=== PATIENT | female | born 1945 | race Caucasian/White ===

== ENCOUNTER 2018-11-22 06:54 | Inpatient (IN) | payer MEDICARE, BC ==
[~2018-11-22] VITALS: Ht 171.4 cm; Wt 63.0 kg
== END 2018-11-23 13:22 | disposition home or self-care (01) | DRG 470 ==
LOC: ORIP 06:54 → 4NOR 12:13 → DCLOUNGE 11-23 12:51
PROVIDERS: ADMIT Orthopaedic Surgery; ATTEND Orthopaedic Surgery
PROC: 0SRB06Z Replacement of Left Hip Joint with Oxidized Zirconium on Polyethylene Synthetic Substitute, Open Approach (ICD-10-PCS; principal; 2018-11-22)
DX: M16.12 Unilateral primary osteoarthritis, left hip (principal); Z88.1 Allergy status to other antibiotic agents
CPT/HCPCS: 36415; 72170; 85014; 85018; 86850; 86900; C1713; G0378; J0171; J0690; J1100; J1885; J2250; J2405; J2704; J2795; J3010; J3370; C1776; J2370; J7120